=== PATIENT | male | born 1950 | race Caucasian/White ===

== ENCOUNTER 2019-10-09 20:04 | Emergency (ER) | payer OTHER ==
[~2019-10-09 20:04] MED LIST: 'PARAFON FORTE500 M1 PO; HYDROCODONE BIT1 T11 PO; LABETALOL HCL200 MG PO; MELOXICAM7.5 MG PO; NAPROSYN500 MG PO
== END 2019-10-09 22:05 | disposition expired ==
LOC: ED 20:04
DX: I46.9 Cardiac arrest, cause unspecified (principal); S00.81XA Abrasion of other part of head, initial encounter; I10 Essential (primary) hypertension; M19.90 Unspecified osteoarthritis, unspecified site; Z79.899 Other long term (current) drug therapy; W10.8XXA Fall (on) (from) other stairs and steps, initial encounter; Y93.89 Activity, other specified; Y92.89 Other specified places as the place of occurrence of the external cause; Y99.8 Other external cause status